=== PATIENT | female | born 1955 | race Caucasian/White ===

== ENCOUNTER 2017-04-15 06:35 | Observation (INO) | payer MEDICARE, OTHER ==
[~2017-04-15] VITALS: Ht 167.6 cm; Wt 73.7 kg
[~2017-04-15 06:35] MED LIST: ATIVAN0.5 MG PO; CELLCEPT 5500 MG/TAB PO; COLACE 100100 MG/CAP PO; FOSAMAX 70MG TA70 MG PO; LEVOXYL0.05 MG PO; MOTRIN JUNIOR100 MG PO; PREDNISONE10 MG PO; PRILOSEC 20MG20 MG PO; PROCARDIA XL 3030 MG PO; PROTONIX40 MG/Pack PO; VITAMIN D1000 IU PO; YAZ 28 3 MG-0.01 TAB PO; ZANTAC 150MG T150 MG PO; [UNRECOGNIZED DRUG - REMARK]
[2017-04-15] MEDS ORDERED: REGLAN 10MG10 MG/TAB PO (09:58)
[2017-04-15] MEDS ORDERED: PLAQUENIL 200M200 MG PO (09:58)
[2017-04-15] MEDS ORDERED: CELLCEPT 5500 MG/TAB PO (09:59)
[2017-04-15] MEDS ORDERED: PRIL40 PO (10:00)
[2017-04-15 10:05] VITALS: BP 145/83; PULSE 105; TEMP 98.6
[2017-04-15 13:32] VITALS: BP 124/62; PULSE 80; TEMP 99.4
[2017-04-15 18:22] VITALS: BP 152/74; PULSE 88; TEMP 98.5
[2017-04-15 22:31] VITALS: BP 124/67; PULSE 86; TEMP 98.8
[2017-04-16] VITALS (7 sets, daily range): BP systolic 103–133; BP diastolic 55–86; PULSE 58–88; TEMP 98–98.6
[2017-04-16 06:12] LABS: BASO % 0.8 % (0.0-2.0); EOS % 0.5 % (0-4.0); GRAN # 2.3 (1.4-6.5); GRAN % 60.5 % (42.2-75.2); LYMPH # 0.9 (1.2-3.4); LYMPH % 23.6 % (20.0-51.0); MEAN CELL VOLUME 92 fl (80.0-100.0); MEAN CORPUSCULAR HGB CONC 32 g/dl (33.0-37.0); MEAN PLATELET VOLUME 9.5 fl (7.4-10.4); MONO # 0.6 (0.1-0.6); MONO % 14.3 % (1.7-9.3); PLATELET COUNT 248 K/mm3 (130-400); RED BLOOD COUNT 3.69 M/mm3 (4.10-5.30); WHITE BLOOD COUNT 3.9 K/mm3 (4.8-10.8)
[2017-04-16 06:15] LABS: HEMATOCRIT 33.9 % (37.0-47.0); HEMOGLOBIN 10.9 g/dl (12.5-16.0); MEAN CORPUSCULAR HEMOGLOBIN 30 pg (27.0-31.0)
[2017-04-16 06:25] LABS: ALBUMIN 3.2 gm/dL (3.5-5.0); CALCIUM 8.8 mg/dL (8.4-10.2); CREATININE, serum 0.61 mg/dL (0.52-1.25); PHOSPHOROUS 2.9 mg/dL (2.5-4.5); POTASSIUM 3.5 mmol/L (3.4-5.0)
[2017-04-17 06:09] VITALS: BP 122/65; PULSE 71; TEMP 97.6
[2017-04-17 06:52] LABS: GRAN # 1.8 (1.4-6.5); GRAN % 59.5 % (42.2-75.2); LYMPH # 0.6 (1.2-3.4); LYMPH % 21.1 % (20.0-51.0); MEAN CELL VOLUME 92 fl (80.0-100.0); MEAN CORPUSCULAR HGB CONC 32 g/dl (33.0-37.0); MEAN PLATELET VOLUME 9.8 fl (7.4-10.4); MONO # 0.5 (0.1-0.6); MONO % 17.1 % (1.7-9.3); PLATELET COUNT 235 K/mm3 (130-400); RED BLOOD COUNT 3.67 M/mm3 (4.10-5.30)
[2017-04-17 06:57] LABS: HEMATOCRIT 33.9 % (37.0-47.0); HEMOGLOBIN 10.8 g/dl (12.5-16.0); MEAN CORPUSCULAR HEMOGLOBIN 29 pg (27.0-31.0)
[2017-04-17 07:01] LABS: ALBUMIN 3.3 gm/dL (3.5-5.0); CALCIUM 8.8 mg/dL (8.4-10.2); CREATININE, serum 0.56 mg/dL (0.52-1.25); PHOSPHOROUS 3.6 mg/dL (2.5-4.5); POTASSIUM 3.4 mmol/L (3.4-5.0)
[2017-04-17 09:05] VITALS: BP 137/71; PULSE 68; TEMP 97.6
== END 2017-04-17 11:00 | disposition home or self-care (01) ==
LOC: SURG 06:35
PROVIDERS: Surgery
DX: K56.690 Other partial intestinal obstruction (principal); M34.9 Systemic sclerosis, unspecified; E03.9 Hypothyroidism, unspecified; Z23 Encounter for immunization; Z82.49 Family history of ischemic heart disease and other diseases of the circulatory system; Z82.5 Family history of asthma and other chronic lower respiratory diseases
CPT/HCPCS: C9113; G0008; G0378; G0379; J7120; J7517

== ENCOUNTER 2018-05-20 13:24 | Inpatient (IN) | payer MEDICARE, OTHER ==
[~2018-05-20] VITALS: Ht 167.6 cm; Wt 69.5 kg
[~2018-05-20 13:24] MED LIST changes: +PLAQUENIL 200M200 MG PO; +PRIL40 PO; +REGLAN 10MG10 MG/TAB PO
[2018-05-20 13:46] VITALS: BP 129/75; PULSE 102; TEMP 98.3
--- NOTE | 2018-05-20 13:48 | NUR ---
PATIENT ARRIVED TO ROOM 350. PATIENT SETTELED INTO ROOM. INITIAL ASSESSMENT COMPLETE.
--- NOTE | 2018-05-20 14:27 | NUR ---
PATIENT SITTING UP IN CHAIR. PATIENT 5 PAGE ASSESSMENT COMPLETE. PATIENT IS A&O. TACHYCARDIA NOTED, OTHERWISE VSS. BOWEL SOUNDS ACTIVE ALL FOUR QUADRANTS. PATIENT IS NPO. PATIENT STATES THAT SHE IS PASSING FLATUS. ABDOMEN SOFT UPON PALPATION. PATIENT REPORTS LAST BOWEL MOVEMENT WAS LAST NIGHT. POSITIVE PEDAL PULSES EQUAL BILATERALLY. INT TO LEFT FOREARM. NG TUBE CLAMPED TO LEFT NARE. PATIENT DENIES PAIN AT THIS TIME. CALL LIGHT WITHIN REACH. NO OTHER NEEDS.
--- NOTE | 2018-05-20 14:40 | NUR ---
DR. SCHULZ CALLED AND NOTIFIED OF PATIENT'S ARRIVAL TO ROOM 350. PORB FOR NORMAL SALINE IV AT 100 MLS/HR, DILAUDID 0.5-1.0 MG IV Q1H PRN, NPO DIET ORDER AND BRUSH CLEANER NG TUBE TO LIS.
--- NOTE | 2018-05-20 15:20 | NUR ---
IV FLUIDS INFUSING TO LEFT FOREARM IV VIA PUMP. NG TUBE CONNECTED TO CANISTER WITH LIS. FRIEND PRESENT AT THE BEDSIDE. CALL LIGHT WITHIN REACH. NO OTHER NEEDS AT THIS TIME.
[2018-05-20 16:03] VITALS: BP 131/72; PULSE 101; TEMP 98.1
--- NOTE | 2018-05-20 18:52 | NUR ---
REPORT GIVEN TO ADINA HERNANDEZ.
[2018-05-20 19:45] VITALS: BP 134/66; PULSE 98; TEMP 98.6
--- NOTE | 2018-05-20 20:00 | NUR ---
Patient resting in bed watching television at this time. Patient is alert and oriented, answers questions appropriately. NG tube in place per order to LIS. Cannister is currently empty, yellow/green drainage in suction tubing. Patient denies current pain or nausea, call light within reach.
[2018-05-21 03:21] VITALS: BP 119/60; PULSE 94; TEMP 98.2
--- NOTE | 2018-05-21 06:06 | NUR ---
Patient rested well overnight. NG tube remains in place per order to LIS. Suction is effective, but minimal ouput has collected overnight. Patient denies nausea, but does say she feels like there is something in her stomach. Patient up to bathroom with SBA. Denies further needs at this time, call light within reach.
[2018-05-21 06:52] LABS: BASO % 0.6 % (0.0-2.0); EOS # 0.1 (0.0-0.7); EOS % 0.9 % (0-4.0); GRAN # 4.6 (1.4-6.5); GRAN % 72.9 % (42.2-75.2); HEMOGLOBIN 10.5 g/dl (12.5-16.0); LYMPH # 0.8 (1.2-3.4); LYMPH % 13.2 % (20.0-51.0); MEAN CELL VOLUME 94 fl (80.0-100.0); MEAN CORPUSCULAR HEMOGLOBIN 29 pg (27.0-31.0); MEAN CORPUSCULAR HGB CONC 31 g/dl (33.0-37.0); MEAN PLATELET VOLUME 9.4 fl (7.4-10.4); MONO # 0.8 (0.1-0.6); MONO % 12.1 % (1.7-9.3); PLATELET COUNT 292 K/mm3 (130-400); RED BLOOD COUNT 3.58 M/mm3 (4.10-5.30); REDCELL DISTRIBUTION WIDTH-CV 12.8 % (11.5-14.5)
[2018-05-21 06:56] LABS: HEMATOCRIT 33.6 % (37.0-47.0)
[2018-05-21 07:04] LABS: CALCIUM 8.9 mg/dL (8.4-10.2); CREATININE, serum 0.52 mg/dL (0.52-1.25); POTASSIUM 3.7 mmol/L (3.4-5.0)
--- NOTE | 2018-05-21 08:20 | NUR ---
Complained of headache all night. Denied abdominal pain or nausea. Medicated with Dilaudid. NPO. NG to LIS with return of small amounts clear fluid. IV fluids infusing.
[2018-05-21 09:25] VITALS: BP 136/70; PULSE 87; TEMP 97.9
--- NOTE | 2018-05-21 11:00 | NUR ---
Tylenol given for c/o headache. NG clamped.
[2018-05-21 12:17] VITALS: BP 128/67; PULSE 85; TEMP 98.1
[2018-05-21 15:27] VITALS: BP 129/83; PULSE 93; TEMP 97.9
--- NOTE | 2018-05-21 15:52 | NUR ---
Plan: To return home with Steven Mckeon . Patient reports that he lives in [facility] and does not have a DPOA. Patient uses [facility] for RX in [place]. Patient indicated that she would like the NG tube out. Indicated she does not have a PCP at this time. No additonal needs identified.
--- NOTE | 2018-05-21 16:00 | NUR ---
Tolerated po fluids without nausea or pain. [facility] in halls.
--- NOTE | 2018-05-21 18:15 | NUR ---
Dr. Fisher saw patient. Dismissed to home with spouse.
== END 2018-05-21 18:15 | disposition home or self-care (01) | DRG 390 ==
LOC: SURG 13:24
PROVIDERS: ADMIT Surgery
DX: K56.600 Partial intestinal obstruction, unspecified as to cause (principal); M34.9 Systemic sclerosis, unspecified; E78.5 Hyperlipidemia, unspecified; Z85.828 Personal history of other malignant neoplasm of skin; E03.9 Hypothyroidism, unspecified
CPT/HCPCS: J1170; J7030